=== PATIENT | female | born 1940 | race Caucasian/White ===

== ENCOUNTER 2018-05-24 14:22 | Inpatient (IN) | payer MEDICARE, MEDICAID ==
[2018-05-24] VITALS (7 sets, daily range): BP systolic 118–153; BP diastolic 57–88
[~2018-05-24] VITALS: Ht 152.4 cm; Wt 49.5 kg
[2018-05-24] MEDS ORDERED: VANCOMYCIN 1 G PREMIX 200 ML IV ONE (15:45)
[2018-05-24] MEDS ORDERED: PIPERACILLIN/TAZ 3.375G PREMIX 50 ML IV ONE (15:45)
[2018-05-24] MEDS ORDERED: SODIUM CHLORIDE 0.9% 1000ML BAG (SEPSIS BOLUS) IV ONE (15:45)
[2018-05-24] MEDS ORDERED: ACETAMINOPHEN 325MG TABLET PO ONE (15:45)
[2018-05-24 16:53] LABS: HEMATOCRIT. 34.1 % (36.0-48.0); MEAN CORPUSCULAR HEMOGLOBIN 29.4 pg (28.0-32.0); MEAN PLATELET VOLUME 9.3 fl (7.4-10.4); PLATELET 130 x1000/uL (130-400); RED BLOOD CELL COUNT 3.75 mill/uL (4.2-5.4); RED CELL DISTRIBUTION WIDTH 18.4 % (11.6-14.6)
[2018-05-24 16:59] LABS: CHLORIDE 98 mEq/L (98-107)
[2018-05-24 17:01] LABS: INR 1.3; PARTIAL THROMBOPLASTIN TIME 28.9 sec (23.4-31.0); PROTHROMBIN TIME 13.1 sec (9.1-11.1)
[2018-05-24 17:19] LABS: PLATELET ESTIMATE NORMAL
[2018-05-24] MEDS ORDERED: NOREPINEPHRINE 4 MG in DEXT 5% WATER 246 ML IV ONE ×2 (17:30→17:45)
[2018-05-24] MEDS ORDERED: *TOBRAMYCIN PER PHARMACY XX SCH (17:30)
[2018-05-24] MEDS ORDERED: LIDOCAINE HCL 1% 20ML VIAL (Pyxis) INJ ONE (17:42)
[2018-05-24] MEDS: MEROPENEM 500MG in NORMAL SALINE 50ML IV SCH (18:30)
[2018-05-24] MEDS ORDERED: MIDODRINE HCL 5MG TABLET PO PRN (18:45)
[2018-05-24] MEDS ORDERED: TOBRAMYCIN SULFATE 100 MG in SODIUM CHLORIDE 0.9% 100 ML IV NR (19:00)
[2018-05-24] MEDS ORDERED: DEXTROSE 50% WATER 50ML SYRINGE IV PRN (22:30)
[2018-05-24] MEDS ORDERED: ONDANSETRON HCL 4MG/2ML VIAL IV PRN (22:30)
[2018-05-24] MEDS: MIRTAZAPINE 15MG TABLET PO SCH (23:22)
[2018-05-24] MEDS ORDERED: MULT-1116 MT (23:58)
[2018-05-24] MEDS ORDERED: MIRT15TA7 MT (23:58)
[2018-05-24] MEDS ORDERED: WARF1TAB85 PO (23:58)
[2018-05-24] MEDS ORDERED: ASPI-1159 MT (23:58)
[2018-05-24] MEDS ORDERED: CADE40GE2 TP (23:58)
[2018-05-24] MEDS ORDERED: FOLI0.8T23 MT (23:58)
[2018-05-24] MEDS ORDERED: SULF-288 MT (23:58)
[2018-05-24] MEDS ORDERED: CLOP75TA33 MT (23:58)
[2018-05-24] MEDS ORDERED: MIDO5TAB PO (23:58)
[2018-05-24] MEDS ORDERED: SEVE800T8 MT (23:58)
[2018-05-24] MEDS ORDERED: PANT40TA4 MT (23:58)
[2018-05-25] VITALS (97 sets, daily range): BP systolic 73–143; BP diastolic 27–98
[2018-05-25] MEDS: ACETAMINOPHEN 650MG/20.3ML UDC PO PRN (00:54)
[2018-05-25] MEDS: NOREPINEPHRINE 4 MG in DEXT 5% WATER 246 ML IV PRN (01:22)
[2018-05-25 05:42] LABS: BASOPHILS % 0.3 % (0.0-2.0); EOSINOPHILS % 1.6 % (0.0-5.0); HEMATOCRIT. 33.5 % (36.0-48.0); HEMOGLOBIN. 10.6 g/dL (12.0-16.0); LYMPHOCYTES % 11.8 % (20.0-50.0); MEAN CORPUSCULAR HEMOGLOBIN 29.3 pg (28.0-32.0); MEAN CORPUSCULAR VOLUME 92.3 fL (81.0-99.0); MEAN PLATELET VOLUME 9.4 fl (7.4-10.4); MONOCYTES % 10.4 % (2.0-8.0); NEUTROPHILS % 75.9 % (40.0-76.0); PLATELET 125 x1000/uL (130-400); RED BLOOD CELL COUNT 3.63 mill/uL (4.2-5.4); RED CELL DISTRIBUTION WIDTH 18.8 % (11.6-14.6)
[2018-05-25 05:47] LABS: D-DIMER 3.63 mg/L FEU (<0.50); INR 1.4; PROTHROMBIN TIME 13.6 sec (9.1-11.1)
[2018-05-25 05:48] LABS: CHLORIDE 100 mEq/L (98-107)
[2018-05-25 05:56] LABS: LDL CHOLESTEROL 72 mg/dL (5-100); PHOSPHORUS 4.8 mg/dL (2.5-4.9)
[2018-05-25 05:58] LABS: CREATINE KINASE 56 IU/L (26-192); CREATINE KINASE MB FRACTION 7.6 ng/mL (0.5-3.6); HDL CHOLESTEROL 29 mg/dL (40-59)
[2018-05-25] MEDS ORDERED: BLOOD SUGAR DIAGNOSTIC STRIP TEST SCH (07:50)
[2018-05-25] MEDS ORDERED: INSULIN LISPRO 100 UNITS/ML SUBCUT SCH (08:20)
[2018-05-25] MEDS ORDERED: MIDODRINE HCL 5MG TABLET PO SCH (09:00)
[2018-05-25] MEDS ORDERED: CLOPIDOGREL 75MG TABLET PO SCH (09:00)
[2018-05-25] MEDS: PANTOPRAZOLE SODIUM 40 MG/VIAL IV SCH (09:29)
[2018-05-25] MEDS: SEVELAMER CARBONATE 800 MG TABLET PO SCH ×3 (09:30→17:51)
[2018-05-25] MEDS: FOLIC ACID/VITAMIN B COMP W-C TABLET PO SCH (09:30)
[2018-05-25] MEDS ORDERED: LIDOCAINE HCL/PF 1% 10 MG/ML 5ML VIAL IJ NR (10:30)
[2018-05-25] MEDS ORDERED: LIDOCAINE HCL 1% 20ML VIAL (Pyxis) INJ ONE (10:41)
[2018-05-25] MEDS: ASPIRIN 81MG EC TABLET PO SCH (13:38)
[2018-05-25] MEDS: MIDODRINE HCL 5MG TABLET PO SCH ×2 (13:42→17:51)
[2018-05-25 13:45] LABS: TOBRAMYCIN RANDOM 3.9 ucg/mL
[2018-05-25] MEDS ORDERED: VANCOMYCIN 750 MG PREMIX 150 ML IV NR (16:00)
[2018-05-25] MEDS: MEROPENEM 500MG in NORMAL SALINE 50ML IV SCH (17:52)
[2018-05-25] MEDS: MIRTAZAPINE 15MG TABLET PO SCH (21:33)
[2018-05-26] VITALS (91 sets, daily range): BP systolic 73–137; BP diastolic 28–78
[2018-05-26 05:47] LABS: BASOPHILS % 0.6 % (0.0-2.0); EOSINOPHILS % 4.6 % (0.0-5.0); HEMATOCRIT. 33.8 % (36.0-48.0); HEMOGLOBIN. 10.9 g/dL (12.0-16.0); LYMPHOCYTES % 17.4 % (20.0-50.0); MEAN CORPUSCULAR HEMOGLOBIN 29.4 pg (28.0-32.0); MEAN CORPUSCULAR VOLUME 90.6 fL (81.0-99.0); MEAN PLATELET VOLUME 9.4 fl (7.4-10.4); MONOCYTES % 14.1 % (2.0-8.0); NEUTROPHILS % 63.3 % (40.0-76.0); PLATELET 151 x1000/uL (130-400); RED BLOOD CELL COUNT 3.73 mill/uL (4.2-5.4); RED CELL DISTRIBUTION WIDTH 18.8 % (11.6-14.6)
[2018-05-26 06:13] LABS: PHOSPHORUS 6.7 mg/dL (2.5-4.9)
[2018-05-26 06:19] LABS: CREATINE KINASE MB FRACTION 2.9 ng/mL (0.5-3.6)
[2018-05-26] MEDS ORDERED: LIDOCAINE HCL 1% 20ML VIAL (Pyxis) INJ ONE (08:05)
[2018-05-26] MEDS ORDERED: HEPARIN 1000 UNITS/ML 10ML ONE (08:10)
[2018-05-26] MEDS ORDERED: FOLIC ACID/VITAMIN B COMP W-C TABLET PO SCH (09:00)
[2018-05-26] MEDS: FOLIC ACID/VITAMIN B COMP W-C TABLET PO SCH (09:32)
[2018-05-26] MEDS: ASPIRIN 81MG EC TABLET PO SCH (09:33)
[2018-05-26] MEDS: MIDODRINE HCL 5MG TABLET PO SCH ×3 (09:33→18:03)
[2018-05-26] MEDS: PANTOPRAZOLE SODIUM 40 MG/VIAL IV SCH (09:33)
[2018-05-26] MEDS: SEVELAMER CARBONATE 800 MG TABLET PO SCH ×3 (09:33→18:03)
[2018-05-26] MEDS: NOREPINEPHRINE 4 MG in DEXT 5% WATER 246 ML IV PRN (10:03)
[2018-05-26] MEDS ORDERED: IOHEXOL-300 50 ML BOTTLE IV ONE (10:36)
[2018-05-26] MEDS: MEROPENEM 500MG in NORMAL SALINE 50ML IV SCH (18:03)
[2018-05-26] MEDS ORDERED: TOBRAMYCIN SULFATE IV SCH (21:00)
[2018-05-26] MEDS ORDERED: SODIUM CHLORIDE 0.9% IV SCH (21:00)
[2018-05-26] MEDS: MIRTAZAPINE 15MG TABLET PO SCH (22:49)
[2018-05-27] VITALS (66 sets, daily range): BP systolic 67–124; BP diastolic 28–72
[2018-05-27] MEDS: ACETAMINOPHEN 650MG/20.3ML UDC PO PRN ×2 (03:45→15:22)
[2018-05-27 05:44] LABS: CREATINE KINASE MB FRACTION 2.6 ng/mL (0.5-3.6)
[2018-05-27 05:54] LABS: BASOPHILS % 0.5 % (0.0-2.0); EOSINOPHILS % 5.5 % (0.0-5.0); HEMATOCRIT. 33.4 % (36.0-48.0); LYMPHOCYTES % 15.4 % (20.0-50.0); MEAN CORPUSCULAR HEMOGLOBIN 29.9 pg (28.0-32.0); MEAN CORPUSCULAR VOLUME 90.7 fL (81.0-99.0); MEAN PLATELET VOLUME 9.1 fl (7.4-10.4); MONOCYTES % 14.7 % (2.0-8.0); NEUTROPHILS % 63.9 % (40.0-76.0); PLATELET 159 x1000/uL (130-400); RED BLOOD CELL COUNT 3.68 mill/uL (4.2-5.4); RED CELL DISTRIBUTION WIDTH 18.1 % (11.6-14.6)
[2018-05-27] MEDS: PANTOPRAZOLE SODIUM 40 MG/VIAL IV SCH (08:33)
[2018-05-27] MEDS: FOLIC ACID/VITAMIN B COMP W-C TABLET PO SCH (08:34)
[2018-05-27] MEDS: ASPIRIN 81MG EC TABLET PO SCH (08:34)
[2018-05-27] MEDS: MIDODRINE HCL 5MG TABLET PO SCH ×3 (08:34→17:52)
[2018-05-27] MEDS: SEVELAMER CARBONATE 800 MG TABLET PO SCH ×3 (08:34→17:52)
[2018-05-27] MEDS ORDERED: ALBUTEROL (0.083%) 2.5MG/3ML NEB HHN PRN (11:30)
[2018-05-27] MEDS ORDERED: BENZONATATE 100MG CAPSULE PO PRN (11:30)
[2018-05-27] MEDS: MEROPENEM 500MG in NORMAL SALINE 50ML IV SCH (17:55)
[2018-05-27] MEDS ORDERED: WARFARIN SODIUM 1MG TABLET PO SCH (18:00)
[2018-05-27] MEDS: MIRTAZAPINE 15MG TABLET PO SCH (20:34)
[2018-05-28] VITALS: BP 102/43
[2018-05-28 04:00] VITALS: BP 100/43
[2018-05-28 06:35] LABS: INR 1.3; PROTHROMBIN TIME 12.9 sec (9.1-11.1)
[2018-05-28 06:38] LABS: BASOPHILS % 0.8 % (0.0-2.0); EOSINOPHILS % 5.7 % (0.0-5.0); HEMATOCRIT. 34.2 % (36.0-48.0); HEMOGLOBIN. 11.2 g/dL (12.0-16.0); LYMPHOCYTES % 24.2 % (20.0-50.0); MEAN CORPUSCULAR HEMOGLOBIN 30.2 pg (28.0-32.0); MEAN CORPUSCULAR VOLUME 92.4 fL (81.0-99.0); MEAN PLATELET VOLUME 9.3 fl (7.4-10.4); MONOCYTES % 13.9 % (2.0-8.0); NEUTROPHILS % 55.4 % (40.0-76.0); PLATELET 149 x1000/uL (130-400); RED CELL DISTRIBUTION WIDTH 18.3 % (11.6-14.6)
[2018-05-28 07:18] LABS: PHOSPHORUS 4.9 mg/dL (2.5-4.9)
[2018-05-28 08:00] VITALS: BP 109/62
[2018-05-28] MEDS: FOLIC ACID/VITAMIN B COMP W-C TABLET PO SCH (09:06)
[2018-05-28] MEDS: SEVELAMER CARBONATE 800 MG TABLET PO SCH ×2 (09:06→13:03)
[2018-05-28] MEDS: ASPIRIN 81MG EC TABLET PO SCH (09:06)
[2018-05-28] MEDS: MIDODRINE HCL 5MG TABLET PO SCH (13:02)
[2018-05-28] MEDS: PANTOPRAZOLE SODIUM 40 MG/VIAL IV SCH (13:03)
[2018-05-28] MEDS ORDERED: VANCOMYCIN 500 MG PREMIX 100 ML IV SCH (14:00)
[2018-05-28 15:28] VITALS: BP 111/47
[2018-05-28] MEDS ORDERED: WARFARIN SODIUM 1MG TABLET PO NR (18:00)
== END 2018-05-28 16:05 | disposition home health service (06) | DRG 981 ==
LOC: ER 14:22 → CVICU 17:58 → ENRESERV 20:30 → 6WST 05-27 17:06
PROVIDERS: ADMIT Internal Medicine; ATTEND Internal Medicine
PROC: 0JPT3XZ Removal of Tunneled Vascular Access Device from Trunk Subcutaneous Tissue and Fascia, Percutaneous Approach (ICD-10-PCS; 2018-05-24)
PROC: 06HM33Z Insertion of Infusion Device into Right Femoral Vein, Percutaneous Approach (ICD-10-PCS; 2018-05-24)
PROC: 0LBW0ZZ Excision of Left Foot Tendon, Open Approach (ICD-10-PCS; principal; 2018-05-25)
PROC: B5181ZZ Fluoroscopy of Superior Vena Cava using Low Osmolar Contrast (ICD-10-PCS; 2018-05-26)
PROC: 05H633Z Insertion of Infusion Device into Left Subclavian Vein, Percutaneous Approach (ICD-10-PCS; 2018-05-26)
PROC: B547ZZA Ultrasonography of Left Subclavian Vein, Guidance (ICD-10-PCS; 2018-05-26)
PROC: 5A1D70Z Performance of Urinary Filtration, Intermittent, Less than 6 Hours Per Day (ICD-10-PCS; 2018-05-27)
DX: T82.7XXA Infection and inflammatory reaction due to other cardiac and vascular devices, implants and grafts, initial encounter (principal); A41.9 Sepsis, unspecified organism; R65.21 Severe sepsis with septic shock; N18.6 End stage renal disease; E43 Unspecified severe protein-calorie malnutrition; I21.4 Non-ST elevation (NSTEMI) myocardial infarction; I12.0 Hypertensive chronic kidney disease with stage 5 chronic kidney disease or end stage renal disease; I42.0 Dilated cardiomyopathy; I45.2 Bifascicular block; I67.82 Cerebral ischemia; I82.511 Chronic embolism and thrombosis of right femoral vein; I82.531 Chronic embolism and thrombosis of right popliteal vein; I82.512 Chronic embolism and thrombosis of left femoral vein; E11.621 Type 2 diabetes mellitus with foot ulcer; E11.51 Type 2 diabetes mellitus with diabetic peripheral angiopathy without gangrene; E11.36 Type 2 diabetes mellitus with diabetic cataract; D63.8 Anemia in other chronic diseases classified elsewhere; L97.529 Non-pressure chronic ulcer of other part of left foot with unspecified severity; D69.6 Thrombocytopenia, unspecified; E11.22 Type 2 diabetes mellitus with diabetic chronic kidney disease; E78.00 Pure hypercholesterolemia, unspecified; E78.5 Hyperlipidemia, unspecified; E83.39 Other disorders of phosphorus metabolism; I25.10 Atherosclerotic heart disease of native coronary artery without angina pectoris; I25.5 Ischemic cardiomyopathy; I27.20 Pulmonary hypertension, unspecified; E11.42 Type 2 diabetes mellitus with diabetic polyneuropathy; I35.0 Nonrheumatic aortic (valve) stenosis; I48.0 Paroxysmal atrial fibrillation; I49.5 Sick sinus syndrome; Y84.1 Kidney dialysis as the cause of abnormal reaction of the patient, or of later complication, without mention of misadventure at the time of the procedure; I95.89 Other hypotension; K21.9 Gastro-esophageal reflux disease without esophagitis; M06.9 Rheumatoid arthritis, unspecified; I45.10 Unspecified right bundle-branch block; M10.9 Gout, unspecified; M81.0 Age-related osteoporosis without current pathological fracture; Z87.19 Personal history of other diseases of the digestive system; Z87.11 Personal history of peptic ulcer disease; I25.2 Old myocardial infarction; Z99.2 Dependence on renal dialysis; Z79.01 Long term (current) use of anticoagulants; Z79.02 Long term (current) use of antithrombotics/antiplatelets; Z79.82 Long term (current) use of aspirin; Z95.5 Presence of coronary angioplasty implant and graft; Z95.810 Presence of automatic (implantable) cardiac defibrillator; Y92.89 Other specified places as the place of occurrence of the external cause; Z68.21 Body mass index [BMI] 21.0-21.9, adult
CPT/HCPCS: 36415; 36556; 36589; 36597; 70450; 71045; 73630; 74018; 75827; 76937; 80048; 80053; 80061; 80200; 80202; 82550; 82553; 82962; 83605; 83735; 83880; 84100; 84443; 84484; 85025; 85379; 85610; 85730; 86850; 86900; 87040; 87070; 93005; 93306; 93970; 96365; 96366; 96367; 97162; 99291; C1752; C1769; C9113; J1644; J2185; J2543; J3260; J3370; J3490; J7030; J7040; J7050; J7060; Q9967